=== PATIENT | female | born 1965 | race Caucasian/White ===

== ENCOUNTER 2017-03-10 10:43 | Day surgery (SDC) | payer MEDICARE, OTHER ==
[2017-03-10 11:45] VITALS: BMI 19.3
[2017-03-10] MEDS ORDERED: Iohexol 300 10 ML ONE (11:51)
[2017-03-10] MEDS ORDERED: MethylPREDNISolone Depo 40 mg/ml Inj ONE (11:51)
[2017-03-10] MEDS ORDERED: Lidocaine 1% Inj (20ml) ONE (11:52)
[2017-03-10] MEDS ORDERED: Bupivacaine HCl 0.25% PF (10 ml) Inj ONE (11:52)
[2017-03-10] MEDS ORDERED: Propofol 10 mg/ml Inj (20 ML) ONE (13:09)
[2017-03-10] MEDS ORDERED: Lactated Ringer's 1,000 ML IV ONE (13:13)
[2017-03-10] MEDS ORDERED: Iohexol 300 10 ML IJ ONE (13:16)
[2017-03-10] MEDS ORDERED: Bupivacaine HCl 0.25% PF (10 ml) Inj IJ ONE (13:16)
[2017-03-10] MEDS ORDERED: Lidocaine 1% Inj (20ml) IJ ONE (13:16)
[2017-03-10] MEDS ORDERED: methylPREDNISolone Depo 80 mg/ml Inj IM ONE (13:16)
[2017-03-10] MEDS ORDERED: HYDROmorphone 0.5 mg/0.5 ml ISec ONE (13:33)
[2017-03-10] MEDS ORDERED: Lactated Ringer's 1,000 ML IV SCH (13:40)
[2017-03-10] MEDS: HYDROmorphone 0.5 mg/0.5 ml ISec IVP PRN ×4 (13:40→14:25)
--- NOTE | 2017-03-10 14:17 | OP ---
PROCEDURE DATE: 03/10/2017 PREOPERATIVE DIAGNOSES: Chronic lumbar radiculopathy, status post anterior lumbar fusion. POSTOPERATIVE DIAGNOSIS: Chronic lumbar radiculopathy, status post anterior lumbar fusion. PROCEDURES: Transforaminal steroid injection with fluoroscopy right L4-L5 and right L5-S1. DESCRIPTION OF PROCEDURE: With the patient consent signed, she was asked to assume a prone position with a pillow under her abdomen. The low back area was prepped and draped in usual sterile fashion. The ____ process of the right L4-L5 vertebra was identified. Skin infiltration with anesthesia was done using 1% Xylocaine with a 25-gauge needle. A 22 gauge 3-1/2 inch spinal needle was injected tow ards the L4-L5 foramen. This was checked by fluoroscopy in PA and lateral and oblique. The L5-S1 in terspace which ____ was also identified and same procedure was done at this level. Next, 1 mL of Omn ipaque 300 was injected which showed outline of the nerve root. Satisfied with the location of the n eedle on AP and lateral view, and after negative aspiration test, a solution consisting of 40 mg of D epo-Medrol was injected slowly ____ foramen, one after the other. The needle was then withdrawn. Ba nd-Aid applied to the area. The patient tolerated this procedure well under light IV sedation with a nesthesia by Dr. Leal. She was sent then to recovery room in good, stable condition. Shaan Tony MD cc: [id number] TT: 03/10/2017 14:17:01 salvatore
--- NOTE | 2017-03-10 15:00 | RAD ---
Fluoroscopic assistance was provided for spinal management procedure. Approximately 29.4 seconds of fluoroscopy time utilized. Radiation dose = 3.81 mGy Please refer to the operative report for additional details.
[2017-03-10 15:36] VITALS: RESP 18
[2017-03-10 16:57] VITALS: BP 90/59; PULSE 58; TEMP 97.8; O2SAT 98
== END 2017-03-10 17:30 | disposition home or self-care (01) ==
LOC: H.OPSURG 10:43
PROVIDERS: ATTEND Anesthesiology
DX: M54.17 Radiculopathy, lumbosacral region (principal)
CPT/HCPCS: 64483; 64484; J1030; J1040; J1170; J2704; J3010; J7120; Q9967